=== PATIENT | female | born 2000 | race Caucasian/White ===

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

== ENCOUNTER 2023-11-25 10:27 | Inpatient (IN) ==
[2023-11-25] MEDS ORDERED: Lidocaine 1% VIAL 10 MG/ML 30 ML VIAL INJ PRN (11:35)
[2023-11-25] MEDS ORDERED: Buffered Lidocaine 1% SYRIN 1 ml INTRADERM ONE (11:35)
[2023-11-25] MEDS ORDERED: Lactated Ringers 1000 ml BAG 1,000 ML IV SCH ×3 (12:00→23:45)
[2023-11-25] MEDS: miSOPROStol 100 mcg TAB VAGINAL ONE (12:06)
[2023-11-25] MEDS ORDERED: Calcium Carb (TUMS) 500 mg CHEW TAB PO PRN (12:12)
[2023-11-25 12:23] LABS: Urine Benzodiazepine Screen None Detected (None Detect); Urine Cannabinoids Screen None Detected (None Detect); Urine Opiates Screen None Detected (None Detect)
[2023-11-25] MEDS ORDERED: Lidocaine 1.5% EPI 1:200,000 30 ML SDV ONE (18:13)
[2023-11-25] MEDS ORDERED: Phenylephrine 40 mcg/mL 10mL (400mcg) SYRINGE ONE ×2 (18:13→19:34)
[2023-11-25 18:20] LABS: Hematocrit 30.6 % (35-45); Hemoglobin 10.2 g/dL (11.5-14.3); Mean Corpuscular Hemoglobin 25.8 pg (27-33); Mean Corpuscular Hgb Conc 33.2 g/dL (31-36); Mean Corpuscular Volume 77.7 fL (80-97); Mean Platelet Volume 9.9 fL (7.5-11.2); Platelet Count 224 10^3/uL (150-450); Red Blood Count 3.94 10^6/uL (3.63-4.92); Red Cell Distribution Width 15.2 % (12-17); White Blood Count 12.4 10^3/uL (3.8-11.8)
[2023-11-25 18:51] LABS: ABS Basophils 0.1 10^3/uL (0.0-0.1); ABS Eosinophils 0.2 10^3/uL (0.0-0.5); ABS Lymphocytes 1.5 10^3/uL (1.0-4.8); ABS Monocytes 0.8 10^3/uL (0.0-0.9); ABS Neutrophils 9.9 10^3/uL (1.5-7.6); ABS Nucleated RBC 0.01 10^3/ul; Anisocytosis 1+; Eosinophil % 1.4 %; Microcytosis 1+; Nucleated Red Blood Cells % 0.1 %/100WBC (0.0-0.8)
[2023-11-25] MEDS ORDERED: Lactated Ringers 1000 ml BAG 1,000 ML IV ONE (19:34)
[2023-11-25] MEDS ORDERED: Phenylephrine 40 mcg/mL 10mL (400mcg) SYRINGE IV PUSH PRN (19:34)
[2023-11-25] MEDS ORDERED: Sodium Citrate/Citric Acid LIQ 15 ML UDC PO PRN (19:34)
[2023-11-25] MEDS ORDERED: OBEPIDURAL (200 ML) 200 ML EPIDURAL SCH (20:00)
[2023-11-25] MEDS: OBEPIDURAL (200 ML) 200 ML EPIDURAL ONE (20:30)
[2023-11-25] MEDS: Phenylephrine 40 mcg/mL 10mL (400mcg) SYRINGE IV PUSH PRN (21:49)
[2023-11-25] MEDS: Lactated Ringers 1000 ml BAG 1,000 ML IV ONE (22:09)
[2023-11-25 22:44] LABS: Urine Appearance Clear; Urine Bilirubin Negative (Negative); Urine Blood 3+ (Negative); Urine Color Colorless; Urine Glucose Negative (Negative); Urine Ketones Negative (Negative); Urine Nitrite Negative (Negative); Urine Protein Trace (Negative); Urine Specific Gravity 1.011 (1.002-1.030); Urine Urobilinogen Negative (Negative); Urine pH 7.5 (5.0-8.0)
[2023-11-25 23:12] LABS: Urine Bacteria Absent /HPF (Absent); Urine Red Blood Cell 3+(>10/hpf) /HPF (0-Trace); Urine Squamous Epithelial Cell Present /HPF (Absent); Urine White Blood Cell Trace(0-5/hpf) /HPF (0-Trace)
[2023-11-25] MEDS ORDERED: Oxytocin in LR 20,000 MILLI.UNIT/1,000 ML BAG IV ONE (23:14)
[2023-11-25] MEDS ORDERED: Oxytocin in LR 20,000 MILLI.UNIT/1,000 ML BAG IV SCH (23:20)
[2023-11-25] MEDS ORDERED: Nicotine Lozenge mini 4 MG LOZNG.MINI MT PRN (23:48)
[2023-11-26] MEDS: Dibucaine 1% OINT 28.35 GM TUBE PR PRN (00:32)
[2023-11-26] MEDS: Witch Hazel PAD JAR TOPICAL PRN (00:32)
[2023-11-26 07:09] LABS: ABS Eosinophils 0.2 10^3/uL (0.0-0.5); ABS Lymphocytes 1.7 10^3/uL (1.0-4.8); ABS Monocytes 1.1 10^3/uL (0.0-0.9); ABS Neutrophils 12.9 10^3/uL (1.5-7.6); ABS Nucleated RBC 0.03 10^3/ul; Eosinophil % 1.2 %; Hematocrit 25.8 % (35-45); Hemoglobin 8.5 g/dL (11.5-14.3); Lymphocyte % 10.5 %; Mean Corpuscular Hemoglobin 25.8 pg (27-33); Mean Platelet Volume 9.8 fL (7.5-11.2); Nucleated Red Blood Cells % 0.2 %/100WBC (0.0-0.8); Platelet Count 187 10^3/uL (150-450); Red Cell Distribution Width 15.7 % (12-17); White Blood Count 15.9 10^3/uL (3.8-11.8)
[2023-11-26] MEDS: Nicotine PATCH 14 MG/24 HR PATCH TRANSDERM SCH (09:47)
[2023-11-26] MEDS: Polyethylene Glycol 3350 17 GM PACKET PO PRN (16:50)
[2023-11-26 19:00] VITALS: BP 116/58
[2023-11-26] MEDS: Glycerin ADULT 2.4 gm SUPP PR PRN (21:09)
== END 2023-11-26 23:24 | disposition home or self-care (01) | DRG 560 ==
LOC: MCHOBOUT 10:27 → MCHOB 11:15
PROVIDERS: ADMIT Midwife; ATTEND Midwife